=== PATIENT | female | born 1955 | race American Indian/Alaskan Native ===

== ENCOUNTER 2019-10-12 10:23 | Observation (INO) | payer MEDICARE ==
--- NOTE | 2019-10-12 11:32 | Emergency Department Report ---
Blank Doc - Documentation Documentation: 64-year-old female that was sent by PCP for low K+. Daugther stated that laly ent had diarrhea for a long time. This initial assessment/diagnostic orders/clinical plan/treatment(s) is/are subject to change based on patient's health status, clinical progression and re-assessment by fellow clinical providers in the ED. Further treatment and workup at subsequent clinical providers discretion. Patient/guardians urged not to elope from the ED as their condition may be serious if not clinically assessed and managed. Initial orders include: 1- Patient sent to MAIN ED for further evaluation and treatment 2- labs 3- EKG
[2019-10-12] MEDS ORDERED: MAGNESIUM SULFATE 2 GM/50 ML BAG IV ONE (11:46)
[2019-10-12 12:18] LABS: Basophils # (Auto) 0.1 K/mm3 (0.0-0.1); Basophils % (Auto) 1.4 % (0.0-1.8); Eosinophils % (Auto) 0.3 % (0.0-4.3); Hematocrit 36.1 % (30.3-42.9); Hemoglobin 12.4 gm/dl (10.1-14.3); Lymphocytes # (Auto) 1.4 K/mm3 (1.2-5.4); Lymphocytes % (Auto) 27.3 % (13.4-35.0); Mean Corpuscular HGB Conc 34 % (30-34); Mean Corpuscular Volume 104 fl (79-97); Monocytes # (Auto) 0.6 K/mm3 (0.0-0.8); Monocytes % (Auto) 12.1 % (0.0-7.3); Platelet Count 218 K/mm3 (140-440); Red Blood Count 3.46 M/mm3 (3.65-5.03); Red Cell Distribution Width 15.1 % (13.2-15.2)
--- NOTE | 2019-10-12 12:32 | Emergency Department Report ---
ED General Adult HPI - General Chief complaint: Recheck/Abnormal Lab/Rx Stated complaint: LOW POTASSIUM/DOC ORDERED Time Seen by Provider: 10/12/19 11:22 Source: patient, family Mode of arrival: Ambulatory Limitations: No Limitations - History of Present Illness Initial comments: 64-year-old female who states that she's had intermittent diarrhea for one month. She is here with a family member who also provides information. They apparently went to the primary care physician for the first time this month. They were called because he was found to have a potassium of 2.6. The patient states that she has lost 15 pounds over the last 3 months. She states that she started at about 89 and now she is eating. She denied any medical history. However, the family member stated that she had just gone to an oncologist for evaluation of a what sounds like a pulmonary nodule or mass. She has follow-up planned with Dr. Carmen on November 03. She has no known history of cancer. She also denies history of thyroid disease and she is not taking a diuretic. The patient's diarrhea has been intermittent, 3 times yesterday. None today. She seen no signs of GI bleeding. She denies fever and chills. She has not had a recent hospitalization. -: week(s) Severity scale (0 -10): 0 Consistency: intermittent Associated Symptoms: denies other symptoms, weakness - Related Data Home Medications Medication Instructions Recorded Confirmed Last Taken Simvastatin 10 mg PO QHS 10/12/19 10/12/19 Unknown Verapamil ER [Calan SR] 240 mg PO QDAY 10/12/19 10/12/19 Unknown Allergies Allergy/AdvReac Type Severity Reaction Status Date / Time No Known Allergies Allergy Verified 10/12/19 10:25 ED Review of Systems ROS: Stated complaint: LOW POTASSIUM/DOC ORDERED Other details as noted in HPI Constitutional: weakness. denies: chills, fever Eyes: denies: eye pain, eye discharge, vision change ENT: denies: ear pain, throat pain Respiratory: denies: cough, shortness of breath, wheezing Cardiovascular: denies: chest pain, palpitations Endocrine: no symptoms reported Gastrointestinal: diarrhea. denies: abdominal pain, nausea Genitourinary: denies: urgency, dysuria, discharge Musculoskeletal: denies: back pain, joint swelling, arthralgia Skin: denies: rash, lesions Neurological: denies: headache, weakness, paresthesias Psychiatric: denies: anxiety, depression Hematological/Lymphatic: denies: easy bleeding, easy bruising ED Past Medical Hx - Past Medical History Previous Medical History?: Yes Hx Hypertension: Yes Additional medical history: high cholesterol - Surgical History Past Surgical History?: Yes Hx Breast Surgery: Yes (cyst removal) - Social History Smoking Status: Never Smoker Substance Use Type: None - Medications Home Medications: Home Medications Medication Instructions Recorded Confirmed Last Taken Type Simvastatin 10 mg PO QHS 10/12/19 10/12/19 Unknown History Verapamil ER [Calan SR] 240 mg PO QDAY 10/12/19 10/12/19 Unknown History ED Physical Exam - General Limitations: Physical Limitation General appearance: alert, in no apparent distress, cachectic - Head Head exam: Present: atraumatic, normocephalic - Eye Eye exam: Present: normal appearance, PERRL, EOMI. Absent: scleral icterus - ENT ENT exam: Present: mucous membranes moist - Neck Neck exam: Present: normal inspection. Absent: tenderness, meningismus - Respiratory Respiratory exam: Present: normal lung sounds bilaterally. Absent: respiratory distress - Cardiovascular Cardiovascular Exam: Present: regular rate, normal rhythm. Absent: systolic murmur, diastolic murmur, rubs, gallop - GI/Abdominal GI/Abdominal exam: Present: soft, normal bowel sounds. Absent: distended, tenderness, guarding, rebound, rigid - Extremities Exam Extremities exam: Present: normal inspection - Back Exam Back exam: Present: normal inspection - Neurological Exam Neurological exam: Present: alert, oriented X3, CN II-XII intact. Absent: motor sensory deficit - Psychiatric Psychiatric exam: Present: normal affect, normal mood - Skin Skin exam: Present: warm, dry, intact, normal color. Absent: rash ED Course Vital Signs 10/12/19 10/12/19 10/12/19 10:33 11:59 12:00 Temperature 98.6 F Pulse Rate 107 H 84 Respiratory 20 19 19 Rate Blood Pressure 126/74 116/59 [Right] O2 Sat by Pulse 100 100 100 Oximetry - Reevaluation(s) Reevaluation #1: Patient referred to Dr. Cook for further care and management. 10/12/19 13:46 ED Medical Decision Making - Lab Data Result diagrams: 10/12/19 12:04 10/12/19 12:04 Laboratory Results - last 24 hr 10/12/19 10/12/19 10/12/19 12:04 12:04 12:04 WBC 5.1 RBC 3.46 L Hgb 12.4 Hct 36.1 MCV 104 H MCH 36 H MCHC 34 RDW 15.1 Plt Count 218 Lymph % (Auto) 27.3 Fajardo % (Auto) 12.1 H Eos % (Auto) 0.3 Baso % (Auto) 1.4 Lymph # 1.4 Fajardo # 0.6 Eos # 0.0 Baso # 0.1 Seg Neutrophils % 58.9 Seg Neutrophils # 3.0 PT 12.1 L INR 0.89 APTT 22.6 L Sodium Potassium Chloride Carbon Dioxide Anion Gap BUN Creatinine Estimated GFR BUN/Creatinine Ratio Glucose Calcium Magnesium 1.50 L Total Bilirubin Direct Bilirubin Indirect Bilirubin AST ALT Alkaline Phosphatase Troponin T < 0.010 Total Protein Albumin Albumin/Globulin Ratio Lipase 9 L TSH Free T4 10/12/19 10/12/19 12:04 12:04 WBC RBC Hgb Hct MCV MCH MCHC RDW Plt Count Lymph % (Auto) Fajardo % (Auto) Eos % (Auto) Baso % (Auto) Lymph # Fajardo # Eos # Baso # Seg Neutrophils % Seg Neutrophils # PT INR APTT Sodium 139 Potassium 2.6 L* Chloride 97.3 L Carbon Dioxide 18 L Anion Gap 26 BUN 3 L Creatinine 0.5 L Estimated GFR > 60 BUN/Creatinine Ratio 6 Glucose 119 H Calcium 9.3 Magnesium Total Bilirubin 0.30 Direct Bilirubin < 0.2 Indirect Bilirubin 0.1 AST 52 H ALT 23 Alkaline Phosphatase 266 H Troponin T Total Protein 6.9 Albumin 4.0 Albumin/Globulin Ratio 1.4 Lipase TSH 1.300 Free T4 0.98 - EKG Data -: EKG Interpreted by Nd EKG shows normal: sinus rhythm - EKG Data Interpretation: other (prolonged QT ST depressed interval looks consistent with hypokalemia) Critical care attestation.: If time is entered above; I have spent that time in minutes in the direct care of this critically ill patient, excluding procedure time. ED Disposition Clinical Impression: Hypokalemia, Hypomagnesemia, Generalized weakness, Abnormal EKG Disposition: OP ADMIT IP TO THIS HOSP Is pt being admited?: Yes Does the pt Need Aspirin: Yes Condition: Stable Time of Disposition: 13:47
[2019-10-12 12:33] LABS: INR 0.89 (0.87-1.13); Partial Thromboplastin Time 22.6 Sec. (24.2-36.6)
[2019-10-12 12:40] LABS: Alanine Aminotransferase 23 units/L (7-56); BUN/Creatinine Ratio 6; Blood Urea Nitrogen 3 mg/dL (7-17); Calcium 9.3 mg/dL (8.4-10.2); Hemolysis Index 8
[2019-10-12 12:42] LABS: Bilirubin,Direct < 0.2 mg/dL (0-0.2)
[2019-10-12 12:45] LABS: Free T4 (Free Thyroxine) 0.98 ng/dL (0.76-1.46)
[2019-10-12] MEDS ORDERED: POTASSIUM CHLORIDE ER 20 MEQ TAB PO ONE (13:26)
[2019-10-12] MEDS ORDERED: SODIUM CHLORIDE 0.9% 1000 ML 1,000 ML IV ONE (13:38)
[2019-10-12] MEDS ORDERED: SODIUM CHLORIDE 0.9% 1000 ML 1,000 ML ONE (13:38)
[2019-10-12] MEDS ORDERED: ASPIRIN 325 MG TAB PO ONE (13:48)
[2019-10-12] MEDS: POTASSIUM CHLORIDE 10 MEQ 10 MEQ/100 ML BAG IV SCH ×4 (13:55→17:35)
[2019-10-12 14:34] LABS: Bilirubin,Urine NEG (Negative); Blood,Urine NEG (Negative); Color,Urine Yellow (Yellow); Mucus,Urine FEW /HPF; Protein,Urine <15 mg/dL mg/dL (Negative); Urobilinogen,Urine < 2.0 mg/dL (<2.0)
--- NOTE | 2019-10-12 14:46 | History and Physical Report ---
History of Present Illness Chief complaint: My doctor sent me here History of present illness: 64 YO Female with Severe Malnutrition, HTN, HLD, Pulmonary Nodule suspicious for Malignancy presents to ED for evaluation. Pt states that she has experienced 3 loose stools over the past 1 day as well as 15lbs weight loss over the past month. Pt was seen and evaluated by her Oncologist, Dr. Carmen as we instructed to seek medical care for a "very low potassium". PT transported to [facility] via private vehicle. Pt seen and evaluated in ED and found to have Severe Malnutrition, Hypokalemia, and Hypomagnesemia. Pt treated with IVF resuscitation therapy and repletion of potassium, and magnesium. Pt placed in observation status and admitted to PILY unit. No prior admission for review. No medication listed at time of admission for reconciliation. Past History Past Medical History: hypertension, other (see HPI) Past Surgical History: Other (Breast surgery) Social history: single. denies: smoking, alcohol abuse Family history: hypertension Medications and Allergies Allergies Allergy/AdvReac Type Severity Reaction Status Date / Time No Known Allergies Allergy Verified 10/12/19 10:25 Home Medications Medication Instructions Recorded Confirmed Last Taken Type Simvastatin 10 mg PO QHS 10/12/19 10/12/19 Unknown History Verapamil ER [Calan SR] 240 mg PO QDAY 10/12/19 10/12/19 Unknown History Active Meds: Active Medications Potassium Chloride (Kcl 10meq/100ml) 10 meq in 100 mls @ 100 mls/hr IV Q1H IMELDA Stop: 10/12/19 17:59 Last Admin: 10/12/19 13:55 Dose: 100 mls/hr Documented by: Review of Systems Constitutional: no weight loss, no weight gain Ears, nose, mouth and throat: no ear pain, no ear discharge, no tinnitis, no decreased hearing, no nose pain Breasts: no change in shape, no swelling, no mass Cardiovascular: no syncope, no lightheadedness Respiratory: no cough, no cough with sputum, no hemoptysis, no dyspnea on exertion Gastrointestinal: no abdominal pain, no nausea, no vomiting, no change in bowel habits, no hematemesis Genitourinary Female: no pelvic pain, no flank pain, no menorrhagia, no dysuria, no urinary frequency, no post void dribbling, no urge incontinence Menstruation: no post hysterectomy, no period normal, no period heavy, no period spotting, no period light Rectal: no pain, no incontinence, no bleeding Musculoskeletal: no neck pain, no shooting arm pain, no low back pain Integumentary: no rash, no pruritis, no redness, no wounds, no jaundice, no jinny ils Neurological: no paralysis, no weakness, no tingling, no seizures Psychiatric: no anxiety, no memory loss, no sleep disturbances, no change in bing etite, no change in libido Endocrine: no cold intolerance, no heat intolerance, no polyphagia, no excessive thirst, no nocturia, no flushing Hematologic/Lymphatic: no easy bruising, no easy bleeding, no lymphadenopathy, no lymphedema Allergic/Immunologic: no urticaria, no allergic rhinitis, no anaphylaxis, no angioedema Exam - Constitutional Vitals: Temp Pulse Resp BP Pulse Ox 98.6 F 74 13 119/57 100 10/12/19 10:33 10/12/19 14:23 10/12/19 14:23 10/12/19 14:23 10/12/19 14:23 General appearance: Present: no acute distress, cachectic - EENT Eyes: Present: PERRL ENT: hearing intact, clear oral mucosa - Neck Neck: Present: supple, normal ROM - Respiratory Respiratory effort: normal Respiratory: bilateral: CTA - Cardiovascular Heart Sounds: Present: S1 & S2. Absent: rub, click - Extremities Extremities: pulses symmetrical, No edema Peripheral Pulses: within normal limits - Abdominal General gastrointestinal: Present: soft, non-tender, non-distended, normal bowel sounds Female genitourinary: Present: normal - Integumentary Integumentary: Present: clear, warm, dry - Musculoskeletal Musculoskeletal: generalized weakness - Psychiatric Psychiatric: appropriate mood/affect, intact judgment & insight - Neurologic Neurologic: CNII-XII intact, moves all extremities Results - Labs CBC & Chem 7: 10/12/19 12:04 10/12/19 12:04 Labs: Abnormal lab results 10/12/19 10/12/19 10/12/19 Range/Units 12:04 12:04 12:04 RBC 3.46 L (3.65-5.03) M/mm3 MCV 104 H (79-97) fl MCH 36 H (28-32) pg Hockley % (Auto) 12.1 H (0.0-7.3) % PT 12.1 L (12.2-14.9) Sec. APTT 22.6 L (24.2-36.6) Sec. Potassium (3.6-5.0) mmol/L Chloride (98-107) mmol/L Carbon Dioxide (22-30) mmol/L BUN (7-17) mg/dL Creatinine (0.7-1.2) mg/dL Glucose (65-100) mg/dL Magnesium 1.50 L (1.7-2.3) mg/dL AST (5-40) units/L Alkaline Phosphatase (35-129) units/L Lipase 9 L (13-60) units/L // Range/Units 12:04 RBC (3.65-5.03) M/mm3 MCV (79-97) fl MCH (28-32) pg Hockley % (Auto) (0.0-7.3) % PT (12.2-14.9) Sec. APTT (24.2-36.6) Sec. Potassium 2.6 L* (3.6-5.0) mmol/L Chloride 97.3 L (98-107) mmol/L Carbon Dioxide 18 L (22-30) mmol/L BUN 3 L (7-17) mg/dL Creatinine 0.5 L (0.7-1.2) mg/dL Glucose 119 H (65-100) mg/dL Magnesium (1.7-2.3) mg/dL AST 52 H (5-40) units/L Alkaline Phosphatase 266 H (35-129) units/L Lipase (13-60) units/L Assessment and Plan - Patient Problems (1) Severe malnutrition Current Visit: Yes Status: Acute Plan to address problem: Encourage increased protein intake, (2) Hypokalemia Current Visit: Yes Status: Acute Plan to address problem: repleted in ED, BMP. (3) Hypomagnesemia Current Visit: Yes Status: Acute Plan to address problem: Repleted in ED, BMP (4) DVT prophylaxis Current Visit: Yes Status: Acute Plan to address problem: SCD to BLE while in bed, Pt ambulatory
--- NOTE | 2019-10-12 15:18 | XRay Report ---
CHEST 1 VIEW INDICATION: pulmonary nodule/mass. COMPARISON: None. FINDINGS: Support devices: None. Heart: Within normal limits. Lungs/Pleura: 1.8 cm nodule overlies the inferior aspect of the right hilum. No localized infiltrate. Additional findings: None. IMPRESSION: Right lung mass. Contrast-enhanced CT could be performed for more complete evaluation. Signer Name: Geo Fregoso MD Signed: 10/12/2019 3:13 PM Workstation Name: [id number]
[2019-10-12] MEDS ORDERED: ALBUTEROL 2.5 MG/3 ML NEBU IH PRN (16:52)
[2019-10-12] MEDS ORDERED: IBUPROFEN 600 MG TAB PO PRN (16:52)
[2019-10-12] MEDS ORDERED: ACETAMINOPHEN 325 MG TAB PO PRN (16:52)
[2019-10-12] MEDS ORDERED: ONDANSETRON 4 MG/2 ML INJ IV PRN (16:52)
[2019-10-12] MEDS: SODIUM CHLORIDE 0.9% 1000 ML 1,000 ML IV SCH (18:42)
[2019-10-12] MEDS ORDERED: PRAVASTATIN 20 MG TAB PO SCH (22:00)
[2019-10-12] MEDS ORDERED: NON-FORMULARY EACH (Simvastatin [Simvastatin] 10 MG) PO SCH (22:00)
[2019-10-13 06:16] LABS: BUN/Creatinine Ratio 5; Blood Urea Nitrogen 2 mg/dL (7-17); Hemolysis Index 1
[2019-10-13] MEDS: SODIUM CHLORIDE 0.9% 1000 ML 1,000 ML IV SCH (06:22)
[2019-10-13 07:39] VITALS: BP 125/79
--- NOTE | 2019-10-13 09:14 | Discharge Summary ---
Providers - Providers Date of Admission: 10/12/19 14:46 Date of discharge: 10/13/19 Attending physician: DINA SEGOVIA 10/12/19 18:25 Consult to Dietitian/Nutrition [CONS] Routine Physician Instructions: Reason For Exam: Reason for Consult: poor intake Primary care physician: JACOB MARIEE Hospitalization Reason for admission: hypokalemia Condition: Stable Hospital course: 64 YO Female with Severe Malnutrition, HTN, HLD, Pulmonary Nodule suspicious for Malignancy presented to ED for evaluation. Pt stated that she has experienced 3 loose stools over the past 1 day as well as 15lbs weight loss over the past month. Pt was seen and evaluated by her Oncologist, Dr. Carmen as we instructed to seek medical care for severe hypokalemia. PT transported to [facility] via private vehicle. Pt seen and evaluated in ED and found to have Severe Malnutrition, Hypokalemia, and Hypomagnesemia. Pt treated with IVF resuscitation therapy and repletion of potassium, and magnesium. Pt placed in observation status and admitted to PILY unit. Patient's potassium returned to near normal range of 3.2. Patient will also receive more potassium repletion prior to discharge. Patient is felt to have received maximal hospital benefit and will discharge today. Dedicated discharge time 32 minutes. Disposition: DC-01 TO HOME OR SELFCARE Time spent for discharge: 32 - Discharge Diagnoses (1) Generalized weakness Status: Acute (2) Hypokalemia Status: Acute (3) Hypomagnesemia Status: Acute (4) Severe malnutrition Status: Acute Core Measure Documentation - Palliative Care Palliative Care/ Comfort Measures: Not Applicable - Core Measures Any of the following diagnoses?: none Exam - Constitutional Vitals: Temp Pulse Resp BP Pulse Ox 99.0 F 84 18 125/79 99 10/13/19 07:16 10/13/19 07:16 10/13/19 07:16 10/13/19 07:16 10/13/19 08:12 General appearance: Present: no acute distress, well-nourished - EENT Eyes: Present: PERRL ENT: hearing intact, clear oral mucosa - Neck Neck: Present: supple, normal ROM - Respiratory Respiratory effort: normal Respiratory: bilateral: CTA - Cardiovascular Heart Sounds: Present: S1 & S2. Absent: rub, click - Extremities Extremities: pulses symmetrical, No edema Peripheral Pulses: within normal limits - Abdominal General gastrointestinal: Present: soft, non-tender, non-distended, normal bowel sounds Female genitourinary: Present: normal - Integumentary Integumentary: Present: clear, warm, dry - Musculoskeletal Musculoskeletal: gait normal, strength equal bilaterally - Psychiatric Psychiatric: appropriate mood/affect, intact judgment & insight - Neurologic Neurologic: CNII-XII intact, moves all extremities Plan Activity: advance as tolerated Weight Bearing Status: Weight Bear as Tolerated Follow up with: PRIMARY CARE, [Referring] - 3-5 Days MARLYN CARMEN MD [Staff Physician] - 7 Days Prescriptions: Verapamil ER [Calan SR] 240 mg PO QDAY #30 tab Simvastatin 10 mg PO QHS #30 tab
[2019-10-13] MEDS ORDERED: POTASSIUM CHLORIDE 10 MEQ 10 MEQ/100 ML BAG IV ONE (10:00)
[2019-10-13] MEDS ORDERED: VERAPAMIL ER 240 MG TAB PO SCH (10:00)
[2019-10-13] MEDS ORDERED: MAGNESIUM SULFATE 2 GM/50 ML BAG IV ONE (10:00)
[2019-10-13] MEDS ORDERED: POTASSIUM CHLORIDE ER 20 MEQ TAB PO ONE (10:00)
== END 2019-10-13 14:20 | disposition home or self-care (01) ==
LOC: ED 10:23 → 2B-ACE 14:46
PROVIDERS: ADMIT Internal Medicine; ATTEND Hospitalist
DX: E43 Unspecified severe protein-calorie malnutrition (principal); E87.6 Hypokalemia; E83.42 Hypomagnesemia; I10 Essential (primary) hypertension; E78.5 Hyperlipidemia, unspecified; R53.1 Weakness; R94.31 Abnormal electrocardiogram [ECG] [EKG]; E78.00 Pure hypercholesterolemia, unspecified; Z98.890 Other specified postprocedural states
CPT/HCPCS: 36415; 71045; 80048; 80076; 81001; 83690; 83735; 84439; 84443; 84484; 85025; 85610; 85730; 93005; 93010; 96361; 96365; 96366; 96367; 99284; A9270; G0378; J3475; J3480; J7030